=== PATIENT | male | born 1980 | race Caucasian/White ===

== ENCOUNTER 2019-01-15 15:56 | Emergency (ER) | payer SELFPAY ==
[~2019-01-15] VITALS: Ht 182.9 cm; Wt 102.0 kg
[2019-01-15] MEDS ORDERED: AMOXICILLIN500 MG PO (16:50)
[2019-01-15 17:10] VITALS: BP 135/80
== END 2019-01-15 17:10 | disposition home or self-care (01) | DRG 159 ==
LOC: ED 15:56
DX: K04.7 Periapical abscess without sinus (principal); K02.9 Dental caries, unspecified